=== PATIENT | male | born 1960 | race Caucasian/White ===

== ENCOUNTER 2025-05-31 10:52 | Emergency (ER) | payer MEDICARE ==
[~2025-05-31] VITALS: Ht 182.9 cm; Wt 113.4 kg
[2025-05-31] MEDS ORDERED: IV NS 0.9% 250 ML IV ONE (11:50)
[2025-05-31] MEDS ORDERED: CT SWABBABLE VALVE TRANS SET 1 EA INFUS.SET MC ONE (11:50)
[2025-05-31] MEDS ORDERED: IOHEXOL-350 100 ML VIAL IV ONE (11:50)
[2025-05-31] MEDS: IV NS 0.9% 1,000 ML BAG IV ONE (12:00)
[2025-05-31 12:09] LABS: PLATELET COUNT (AUTO) 158 K/uL (150-450); RED BLOOD CELL COUNT(AUTO) 4.72 MIL/uL (4.5-6.0); RED CELL DISTRIBUTION WIDTH 14.4 % (11.5-15.0); WHITE BLOOD COUNT (AUTO) 10.7 K/uL (4.3-11.0)
[2025-05-31 12:23] LABS: INR 0.98 (0.91-1.10)
[2025-05-31] MEDS: ONDANSETRON HCL/PF 4 MG/2 ML VIAL IVP ONE (12:42)
[2025-05-31] MEDS: MORPHINE SULFATE INJ 2 MG/ML DISP.SYRIN IV ONE (12:42)
[2025-05-31 13:16] LABS: CALCIUM, SERUM 8.7 mg/dL (8.5-10.1); CREATININE 1.0 mg/dL (0.6-1.3); SODIUM SERUM 137.0 mmol/L (136-145); UREA NITROGEN, BLOOD 16.0 mg/dL (7-18)
[2025-05-31 13:22] LABS: ASPARTATE AMINOTRANSFERASE 28.0 U/L (15-37); TOTAL PROTEIN, SERUM 6.6 g/dL (6.4-8.2)
[2025-05-31] MEDS ORDERED: IBUP-1955 PO (13:50)
[2025-05-31] MEDS ORDERED: LIDO30AD10 TP (13:50)
[2025-05-31] MEDS ORDERED: CYCL5TAB PO (13:50)
[2025-05-31] MEDS: KETOROLAC TROMETHAMINE 15 MG/ML VIAL IV ONE (14:08)
[2025-05-31 14:46] VITALS: BP 125/70; TEMP 98.7; O2SAT 99
== END 2025-05-31 14:47 | disposition home or self-care (01) ==
LOC: ER 11:19
DX: S39.012A Strain of muscle, fascia and tendon of lower back, initial encounter (principal); S16.1XXA Strain of muscle, fascia and tendon at neck level, initial encounter; S09.90XA Unspecified injury of head, initial encounter; R07.89 Other chest pain; Z91.048 Other nonmedicinal substance allergy status; V43.52XA Car driver injured in collision with other type car in traffic accident, initial encounter; Y93.89 Activity, other specified; Y92.410 Unspecified street and highway as the place of occurrence of the external cause; Y99.8 Other external cause status
CPT/HCPCS: 99285; 72125; 96360; 93005; 71260; 70450; 74177; 85025; 80048; 80076; 36415; 85730; 86850; J7030; J7050; Q9967